=== PATIENT | female | born 2005 | race Caucasian/White ===

== ENCOUNTER 2024-10-22 14:28 | Emergency (ER) | payer OTHER, SELFPAY ==
[2024-10-22 14:29] VITALS: BP 118/74; PULSE 101; RESP 16; TEMP 36.9; O2SAT 100; BMI 22.0
--- NOTE | 2024-10-22 14:44 | EX.ED.UPPERE ---
HPI <MIKIE Hawthorne - Last Filed: 10/22/24 16:25> History of Present Illness Chief Complaint: Upper Extremity Injury Narrative Narrative: Patient presenting today with pain in her right wrist after an injury occurred while snowboarding this afternoon. She is not sure the exact mechanism of injury but fell while snowboarding. She was wearing a helmet and denies significant injury to her head or any other injury/pain. She is right-handed. PFSH <MIKIE Hawthorne - Last Filed: 10/22/24 16:25> PFSH Home Medications ?Medication ?Instructions ?Recorded ?Last Taken ?Type No Known/Unobtainable [No Known 05/28/15 Unknown History Home Medications] Allergy/AdvReac Type Severity Reaction Status Date / Time No Known Allergies Allergy Verified 10/22/24 14:30 Social History Smoking Status: Never smoker ROS <MIKIE Hawthorne - Last Filed: 10/22/24 16:25> ROS ED Constitutional Constitutional ED: Denies chills or fever(s) Cardiovascular Cardiovascular: Denies chest pain Respiratory/Chest Respiratory/Chest: Denies dyspnea Musculoskeletal Musculoskeletal: Reports arthralgias Integumentary Denies Abrasions Neurologic Neurologic: Denies paresthesias EXAM <MIKIE Hawthorne - Last Filed: 10/22/24 16:25> Physical Exam Const Vital Signs: 10/22/24 14:29 Temperature 98.4 F Temperature Source Oral Pulse Rate 101 H Respiratory Rate 16 Blood Pressure 118/74 Blood Pressure Mean 88 Pulse Ox 100 Oxygen Delivery Method Room Air Positive well nourished, well developed and no apparent distress General Appearance ED: well developed HEENT Reports normocephalic and head/scalp atraumatic Mouth ED: Yes moist mucous membranes normal Eyes PERRL and EOMs intact bilaterally Neck full ROM and supple Chest Wall inspection of chest normal Resp normal respiratory effort and clear to auscultation bilaterally Cardio regular rate and regular rhythm Back/Spine normal ROM and normal to inspection Extremity Extremity Narrative: Edema and pain to palpation to the radial aspect of the right wrist, full range of motion to the right hand, elbow, and shoulder. No pain to palpation to the right forearm. Radial pulse 2+, good cap refill, sensation intact. Neuro oriented x3, CN's II-XII intact bilaterally, moves all extremities, no focal motor deficits and no sensory deficits noted Sensorium / Orientation: awake and alert Psych mental status grossly normal and thought process normal Skin no rashes or lesions noted and no wounds MDM <MIKIE Hawthorne - Last Filed: 10/22/24 16:25> [facility] Narrative Medical decision making narrative: Patient presenting today with concerns for right wrist injury after falling while snowboarding this afternoon. X-ray will be obtained to assess for fracture. I did offer analgesia, she declines and reports that she did take Tylenol prior to arrival. X-ray shows a nondisplaced intra articular fracture of the distal radial metaphysis. She was placed in a AP splint, good capillary refill post splinting. I did refer her to orthopedics, she reports that she would like to follow-up with Dr. Qureshi because her family knows him. I did offer to give her a prescription for analgesia but she declined and reported that she would take Tylenol and ibuprofen as needed for her pain. RICE instructions were discussed. Patient discharged home in stable condition. <Jhonny Barnes MD - Last Filed: 10/22/24 17:14> [facility] Treatment and Re-Evaluation Narrative: Dr. Barnes: I have personally performed a face to face assessment of the patient and have reviewed the MITCHEL Note. I performed a substantive portion of the visit including all aspects of the following. My bunn findings include: History is right wrist pain after snowboarding fall, [id number]. Denies other injuries. Pain worse with movement. Exam is afebrile. Vital signs noted. GCS 15. ABCs intact. Focused exam shows mild swelling and tenderness throughout distal radius. Palpable radial pulse. Able to oppose thumb. Medical Decision Making: My independent interpretation of the x-rays of the right wrist there is an intra-articular distal radius fracture. Nondisplaced. I reviewed the radiology report which confirms my independent interpretation. Patient was placed in an AP splint and prefers follow-up with Dr. Qureshi with orthopedics. Declined narcotic pain medication and prefers to take Tylenol. Continue ice and elevation at home. Return instructions reviewed. Disposition is discharged home in stable condition. Other additions or changes: [None] Procedures <MIKIE Hawthorne - Last Filed: 10/22/24 16:25> Upper Extremity Splints Upper Extremity Splint: Orthoglass and - (AP) Location: Right Discharge Plan Triage Chief Complaint: Upper Extremity Injury ED Midlevel Provider: Jelena Murcia ED Provider: Jhonny Barnes Dx/Rx/DC Orders Clinical Impression: Right wrist fracture Instructions: ED Fracture, Wrist, General Prescriptions: No Action No Known Home Medications Primary Care Provider: Cuca Giraldo Referrals: Cuca Giraldo MD [Primary Care Provider] - Arnoldo Qureshi MD [Med Staff - Active Staff] - 5-7 Days Activity Restrictions/Additional Instructions: Follow-up with orthopedics. Alternate Tylenol and ibuprofen every 4 hours as needed for pain. Rest, ice, elevate your wrist. Print Language: Libyan Disposition Disposition: Home, Self Care Discharge Date/Time: 10/22/24 15:51
--- NOTE | 2024-10-22 15:11 | RAD_ITS ---
STUDY: X-RAY - RIGHT WRIST REASON FOR EXAM: Female, 19 years old. injury TECHNIQUE: 3 view(s) of the wrist were obtained. COMPARISON: None. FINDINGS: There are nondisplaced fracture through the distal radial metaphysis, extending to the articular surface. No angulation. No impaction. Possible undisplaced fracture of the tip of the ulnar styloid. Normal radiocarpal articulation. Normal distal radioulnar articulation. Normal carpal bones. Normal carpal articulations. Normal carpometacarpal articulation of the thumb. Normal second through fifth carpometacarpal articulations. Normal visualized metacarpal bones. The soft tissue structures are unremarkable. RAD/Wrist min 3 Views IMPRESSION: Nondisplaced intra-articular fracture of the distal radial metaphysis. Electronically Signed: Sal Godoy MD at 16:22 EST ,
== END 2024-10-22 15:51 | disposition home or self-care (01) ==
PROVIDERS: Emergency Provider Emergency Medicine; PCP Pediatrics; Visit Provider Emergency Medicine
DX: S52.571A Other intraarticular fracture of lower end of right radius, initial encounter for closed fracture (principal); V00.311A Fall from snowboard, initial encounter; Y93.23 Activity, snow (alpine) (downhill) skiing, snowboarding, sledding, tobogganing and snow tubing; Y99.8 Other external cause status
CPT/HCPCS: 29125; 73110; 99282